=== PATIENT | male | born 1970 | race Caucasian/White ===

== ENCOUNTER 2017-09-16 11:23 | Emergency (ER) | payer OTHER ==
[~2017-09-16] VITALS: Ht 182.9 cm; Wt 159.2 kg
[~2017-09-16 11:23] MED LIST: ACETAMINOPHEN-1 EAC1 PO; ALLEGRA180 MG; ALLOPURINOL 10100 M1 PO; AMOXICILLIN 50500 M1 PO; ATENOLOL 100MG100 MG PO; CARDURA2 MG PO; CIPROFLOXACIN500 M1 PO; CLONIDINE0.1 PO; KEFLEX; LISINOPRIL20 MG PO; PREDNISONE 20 M20 MG PO; ZANTAC 150MG T150 M1 PO; ZOFRAN ODT4 MG PO; ZYRTEC10 MG PO
[2017-09-16] MEDS ORDERED: HYDRALAZINE 2525 MG PO (11:32)
[2017-09-16 11:46] LABS: ABSOLUTE BASOPHILS 0.1 thou/uL (0.0-0.2); ABSOLUTE EOSINOPHILS 0.1 thou/uL (0.0-0.7); ABSOLUTE LYMPHOCYTES 1.2 thou/uL (0.8-5.3); ABSOLUTE MONOCYTES 0.5 thou/uL (0.0-1.2); ABSOLUTE NEUTROPHILS 5.2 thou/uL (1.6-8.1); EOSINOPHILS 1.7 %; HEMATOCRIT 48.7 % (42.0-52.0); HEMOGLOBIN 16.5 gm/dL (14.0-18.0); LYMPHOCYTES 16.7 %; MCH 31.3 pg (26.0-34.0); MCHC 33.8 g/dL (28.0-37.0); MCV 92.6 fL (80.0-100.0); MONOCYTES 6.7 %; NUCLEATED RBCS 0 /100WBC; PLATELET COUNT* 202 thou/uL (150-400); POLYS 73.9 %; RBC 5.26 mil/uL (4.50-6.00); RDW-CV 13.7 % (10.5-14.5)
[2017-09-16 11:57] LABS: APTT 27.5 Seconds (25.0-31.3); PROTIME 9.7 Seconds (9.20-11.50)
[2017-09-16 12:01] LABS: ANION GAP 9 mmol/L (7-16); BUN 14 mg/dL (7-18); CALCIUM 9.2 mg/dL (8.5-10.1); CHLORIDE 105 mmol/L (98-107); CO2 28 mmol/L (21-32); GLUCOSE 180 mg/dL (70-99); POTASSIUM 3.7 mmol/L (3.5-5.1); SODIUM 142 mmol/L (136-145)
[2017-09-16 12:09] LABS: ALBUMIN 3.9 g/dL (3.4-5.0); ALKALINE PHOSPHATASE 77 U/L (46-116); CK-MB MASS 2.4 ng/mL (<0.5-3.6); LIPASE 169 U/L (73-393); NT-PRO BRAIN NAT PEPTIDE 43 pg/mL (<300); SGOT 19 U/L (15-37); SGPT 25 U/L (30-65); TOTAL BILIRUBIN 0.6 mg/dL (<0.1-1.0); TOTAL PROTEIN 7.4 g/dL (6.4-8.2); TROPONIN-I LEVEL <0.06 ng/mL (<0.06)
[2017-09-16] MEDS ORDERED: LOPRESSOR50 PO (12:16)
[2017-09-16 12:32] VITALS: BP 171/96
--- NOTE | 2017-09-16 16:24 | EKG ---
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
== END 2017-09-16 12:32 | disposition home or self-care (01) ==
LOC: M.ERS 11:23
PROVIDERS: Family Medicine
DX: R07.89 Other chest pain (principal); I10 Essential (primary) hypertension; Z90.49 Acquired absence of other specified parts of digestive tract; Z98.890 Other specified postprocedural states

== ENCOUNTER → 2017-10-26 | Outpatient (CLI) | payer OTHER ==
[~2017-10-26] MED LIST changes: +CARDURA4 MG PO; +CARDURA8 MG PO; +HYDRALAZINE 2525 MG PO; +LASIX 40 MG TAB40 M2 PO; +LOPRESSOR50 PO; +NORVASC10 MG PO
[2017-10-26 09:01] LABS: CREATININE 1.1 mg/dL (0.6-1.3)
== END ==
LOC: M.CT 08:19
PROVIDERS: Family Medicine
DX: K42.9 Umbilical hernia without obstruction or gangrene (principal); I10 Essential (primary) hypertension; Z90.49 Acquired absence of other specified parts of digestive tract

== ENCOUNTER 2018-05-04 13:46 | Emergency (ER) | payer OTHER ==
[~2018-05-04] VITALS: Ht 182.9 cm; Wt 190.5 kg
[~2018-05-04 13:46] MED LIST changes: -CARDURA4 MG PO; -CARDURA8 MG PO; -LASIX 40 MG TAB40 M2 PO; -NORVASC10 MG PO
[2018-05-04] MEDS ORDERED: LASIX 40 MG TAB40 M2 PO (13:56)
[2018-05-04] MEDS ORDERED: NORVASC10 MG PO (13:57)
[2018-05-04] MEDS ORDERED: ATENOLOL 100MG100 MG PO (13:57)
[2018-05-04] MEDS ORDERED: CARDURA8 MG PO (13:57)
[2018-05-04] MEDS ORDERED: CARDURA4 MG PO (13:57)
[2018-05-04 14:10] LABS: ABSOLUTE BASOPHILS 0.1 thou/uL (0.0-0.2); ABSOLUTE EOSINOPHILS 0.1 thou/uL (0.0-0.7); ABSOLUTE LYMPHOCYTES 1.4 thou/uL (0.8-5.3); ABSOLUTE MONOCYTES 0.8 thou/uL (0.0-1.2); ABSOLUTE NEUTROPHILS 6.8 thou/uL (1.6-8.1); BASOPHILS 1.2 %; EOSINOPHILS 0.8 %; HEMATOCRIT 47.1 % (42.0-52.0); HEMOGLOBIN 15.8 gm/dL (14.0-18.0); LYMPHOCYTES 15.6 %; MCH 30.7 pg (26.0-34.0); MCHC 33.6 g/dL (28.0-37.0); MCV 91.3 fL (80.0-100.0); MONOCYTES 8.4 %; MPV 7.8 fl. (7.2-11.1); NUCLEATED RBCS 0 /100WBC; PLATELET COUNT* 227 thou/uL (150-400); RBC 5.16 mil/uL (4.50-6.00); RDW-CV 14.3 % (10.5-14.5); WBC 9.2 thou/uL (4.0-11.0)
[2018-05-04 14:21] LABS: ANION GAP 6 mmol/L (7-16); BUN 21 mg/dL (7-18); CALCIUM 8.8 mg/dL (8.5-10.1); CHLORIDE 103 mmol/L (98-107); CO2 29 mmol/L (21-32); CREATININE 1.8 mg/dL (0.6-1.3); GLUCOSE 102 mg/dL (70-99); POTASSIUM 4.2 mmol/L (3.5-5.1); SODIUM 138 mmol/L (136-145)
[2018-05-04 14:32] LABS: ALKALINE PHOSPHATASE 60 U/L (46-116); LIPASE 154 U/L (73-393); MAGNESIUM 2.1 mg/dL (1.8-2.4); NT-PRO BRAIN NAT PEPTIDE 50 pg/mL (<300); SGOT 16 U/L (15-37); SGPT 25 U/L (30-65); TOTAL BILIRUBIN 0.8 mg/dL (<0.1-1.0); TOTAL PROTEIN 7.7 g/dL (6.4-8.2); TROPONIN-I LEVEL <0.06 ng/mL (<0.06)
--- NOTE | 2018-05-04 14:56 | EKG ---
[place] [address] ELECTROCARDIOGRAM REPORT Name: ELIEZER OAKES Room: [facility]#: [id number] Admission: 05/04/18 Attend Phys: Discharge: Date of : 74 Report #: [id number] THIS REPORT FOR: //name// [facility] ED Test Date: 2018-05-04 Test Time: 13:52:05 Pat Name: ELEIZER OAKES Department: Room: Gender: M Cash Applications Manager: TS : 1970 Requested By: Robert Ospina Order Number: [id number] MD: Oli Vyas Measurements Intervals [place] Rate: 57 P: 6 MN: 164 QRS: 3 QRSD: 144 T: 35 QT: 417 QTc: 406 Interpretive Statements Sinus rhythm Compared to ECG 09/16/2017 11:27:38 Sinus tachycardia no longer present Electronically Signed On 05-04-2018 14:56:15 CDT by Oli Vyas [email or web address] <ELECTRONICALLY SIGNED> By: Oli Vyas MD, [facility] 05/04/18 1456 1352 1352 Oli Vyas MD, FACC /EPI
[2018-05-04 15:36] VITALS: BP 129/71
== END 2018-05-04 15:37 | disposition home or self-care (01) ==
LOC: M.ERS 13:46
PROVIDERS: Emergency Medicine
DX: E86.0 Dehydration (principal); R07.89 Other chest pain; R06.02 Shortness of breath; R53.1 Weakness; I10 Essential (primary) hypertension; Z88.6 Allergy status to analgesic agent